=== PATIENT | male | born 1950 | race Caucasian/White ===

== ENCOUNTER 2019-11-24 20:53 | Emergency (ER) | payer BC, MEDICARE ==
[2019-11-24] MEDS ORDERED: Albuterol/Ipratropium 4 GM Inhalation Spray INH STA (21:36)
--- NOTE | 2019-11-24 21:39 | EDM.PDOC ---
ED HPI GENERAL MEDICAL PROBLEM - General Chief Complaint: Respiratory Problem Stated Complaint: SOB,FEVER Time Seen by Provider: 11/24/19 21:29 Source of Information: Reports: Patient, RN Notes Reviewed History Limitations: Reports: No Limitations - History of Present Illness INITIAL COMMENTS - FREE TEXT/NARRATIVE: Woman presents emergency department a complaint of shortness of breath, he states his been ill for about a week he thought he had virus fever only got up to 100 no cough no sputum production initially felt better a couple days ago then progressively got worse. The shortness of breath is worse with exertion feels fine at rest he denies any known exposure or any large gatherings no travel - Related Data Allergies Allergy/AdvReac Type Severity Reaction Status Date / Time Penicillins Allergy Mild Hives Verified 11/24/19 21:10 Sulfa (Sulfonamide Allergy Mild Hives Verified 11/24/19 21:10 Antibiotics) Home Meds: Home Meds Fluconazole [Diflucan] 200 mg PO DAILY 03/24/13 [History] Multivitamin with Minerals [Multiple Vitamin] 1 tab PO DAILY 03/24/13 [History] glipiZIDE [Glucotrol] 5 mg PO DAILY 11/24/19 [History] lisinopriL [Lisinopril] 20 mg PO DAILY 11/24/19 [History] metFORMIN HCl [Metformin HCl] 500 mg PO BID 11/24/19 [History] Past Medical History HEENT History: Reports: Impaired Vision Cardiovascular History: Reports: Hypertension Endocrine/Metabolic History: Reports: Diabetes, Type II - Infectious Disease History Infectious Disease History: Reports: Chicken Pox, Measles - Past Surgical History Head Surgeries/Procedures: Reports: None HEENT Surgical History: Reports: Adenoidectomy, Tonsillectomy Cardiovascular Surgical History: Reports: None GI Surgical History: Reports: Hernia, Inguinal Endocrine Surgical History: Reports: None Dermatological Surgical History: Reports: None Social & Family History - Tobacco Use Smoking Status *Q: Former Smoker Used Tobacco, but Quit: Yes Month/Year Tobacco Last Used: 1985 Second Hand Smoke Exposure: No - Caffeine Use Caffeine Use: Reports: Coffee - Recreational Drug Use Recreational Drug Use: No ED ROS GENERAL - Review of Systems Review Of Systems: See Below Constitutional: Reports: Fever, Chills HEENT: Reports: No Symptoms Respiratory: Reports: Shortness of Breath. Denies: Wheezing, Cough, Sputum Cardiovascular: Reports: Dyspnea on Exertion GI/Abdominal: Reports: No Symptoms : Reports: No Symptoms Musculoskeletal: Reports: No Symptoms Skin: Reports: No Symptoms ED EXAM, GENERAL - Physical Exam Exam: See Below Exam Limited By: No Limitations General Appearance: Alert, WD/WN, No Apparent Distress Neck: Normal Inspection, Supple, Non-Tender, Full Range of Motion Respiratory/Chest: No Respiratory Distress, Lungs Clear, Normal Breath Sounds, No Accessory Muscle Use, Chest Non-Tender Cardiovascular: Regular Rate, Rhythm, No Murmur GI/Abdominal: Soft, Non-Tender Extremities: No Pedal Edema Course - Vital Signs Last Recorded V/S: Last Vital Signs Temp 97.3 F 11/24/19 21:18 Pulse 88 11/24/19 22:56 Resp 16 11/24/19 22:56 BP 158/82 H 11/24/19 22:56 Pulse Ox 94 L 11/24/19 22:56 - Orders/Labs/Meds Orders: Active Orders 24 hr Category Date Time Status RT Post Treatment Assessment [RC] Click to Edit Care 11/24/19 21:37 Active Chest 2V [CR] Stat Exams 11/24/19 21:35 Taken CORONAVIRUS COVID-19, JANEE Stat Lab 11/24/19 21:50 Received Isolation [COMM] Routine Oth 11/24/19 21:35 Ordered Isolation [COMM] Stat Oth 11/24/19 21:34 Ordered Labs: Laboratory Tests 11/24/19 11/24/19 11/24/19 Range/Units 21:55 21:55 21:55 WBC 23.0 H (4.5-11.0) K/uL RBC 3.88 L (4.30-5.90) M/uL Hgb 11.3 L (12.0-15.0) g/dL Hct 33.0 L (40.0-54.0) % MCV 85 (80-98) fL MCH 29 (27-31) pg MCHC 34 (32-36) % Plt Count 450 H (150-400) K/uL Add Manual Diff Yes Neutrophils % (Manual) 82 H (36-66) % Lymphocytes % (Manual) 8 L (24-44) % Monocytes % (Manual) 7 H (2-6) % Eosinophils % (Manual) 2 (2-4) % Sodium (140-148) mmol/L Potassium (3.6-5.2) mmol/L Chloride (100-108) mmol/L Carbon Dioxide (21-32) mmol/L Anion Gap (5.0-14.0) mmol/L BUN (7-18) mg/dL Creatinine (0.8-1.3) mg/dL Est Cr Clr Drug Dosing mL/min Estimated GFR (MDRD) (>60) Glucose (74-106) mg/dL Lactic Acid 1.7 (0.4-2.0) mmol/L Calcium (8.5-10.1) mg/dL Total Bilirubin (0.2-1.0) mg/dL AST (15-37) U/L ALT (12-78) U/L Alkaline Phosphatase (46-116) U/L Lactate Dehydrogenase 275 H (85-227) U/L C-Reactive Protein 16.80 H (0.0-0.3) mg/dL Total Protein (6.4-8.2) g/dL Albumin (3.4-5.0) g/dL Globulin (2.3-3.5) g/dL Albumin/Globulin Ratio (1.2-2.2) Procalcitonin ng/mL 11/24/19 11/24/19 Range/Units 21:55 21:55 WBC (4.5-11.0) K/uL RBC (4.30-5.90) M/uL Hgb (12.0-15.0) g/dL Hct (40.0-54.0) % MCV (80-98) fL MCH (27-31) pg MCHC (32-36) % Plt Count (150-400) K/uL Add Manual Diff Neutrophils % (Manual) (36-66) % Lymphocytes % (Manual) (24-44) % Monocytes % (Manual) (2-6) % Eosinophils % (Manual) (2-4) % Sodium 125 L (140-148) mmol/L Potassium 3.9 (3.6-5.2) mmol/L Chloride 90 L (100-108) mmol/L Carbon Dioxide 26 (21-32) mmol/L Anion Gap 12.9 (5.0-14.0) mmol/L BUN 15 (7-18) mg/dL Creatinine 1.3 (0.8-1.3) mg/dL Est Cr Clr Drug Dosing 47.96 mL/min Estimated GFR (MDRD) 55 L (>60) Glucose 514 H* (74-106) mg/dL Lactic Acid (0.4-2.0) mmol/L Calcium 8.1 L (8.5-10.1) mg/dL Total Bilirubin 0.6 (0.2-1.0) mg/dL AST 74 H (15-37) U/L ALT 87 H (12-78) U/L Alkaline Phosphatase 91 (46-116) U/L Lactate Dehydrogenase (85-227) U/L C-Reactive Protein (0.0-0.3) mg/dL Total Protein 7.5 (6.4-8.2) g/dL Albumin 2.0 L (3.4-5.0) g/dL Globulin 5.5 H (2.3-3.5) g/dL Albumin/Globulin Ratio 0.4 L (1.2-2.2) Procalcitonin 0.23 ng/mL Meds: Medications Discontinued Medications Generic Name Dose Route Start Last Admin Trade Name Medhatq PRN Reason Stop Dose Admin Albuterol/Ipratropium 4 gm 11/24/19 21:36 11/24/19 22:13 Combivent Respimat INH 11/24/19 21:37 4 gm NOW STA Administration Ceftriaxone Sodium 1 gm/ 0 gm 11/24/19 22:56 Lidocaine HCl 2.1 ml IM 11/24/19 22:57 ONETIME ONE Departure - Departure Time of Disposition: 23:01 Disposition: Home, Self-Care 01 Condition: Fair Clinical Impression: CAP (community acquired pneumonia) Qualifiers: Laterality: unspecified laterality Qualified Code(s): J18.9 - Pneumonia, unspecified organism - Discharge Information Instructions: Community-Acquired Pneumonia, Adult, [id number] Referrals: Ran Sandhu MD [Primary Care Provider] - Forms: ED Department Discharge Additional Instructions: Take full course of antibiotics continue use of your albuterol inhaler for shortness of breath, please followup with your primary care provider in 3-5 days if not better, please call return to the emergency department with worsening of symptoms. Sepsis Event Note - Evaluation Sepsis Screening Result: No Definite Risk - Focused Exam Vital Signs: Vital Signs Temp Pulse Resp BP Pulse Ox 11/24/19 22:56 88 16 158/82 H 94 L 05/26/20 22:08 87 146/78 H 96 11/24/19 21:56 85 16 156/75 H 97 11/24/19 21:18 97.3 F 91 16 160/76 H 95 11/24/19 21:09 97.3 F 91 16 160/76 H 95 Date Exam was Performed: 11/24/19 Time Exam was Performed: 22:57 - My Orders Last 24 Hours: My Active Orders 11/24/19 21:34 Isolation [COMM] Stat 11/24/19 21:35 Chest 2V [CR] Stat Isolation [COMM] Routine 11/24/19 21:37 RT Post Treatment Assessment [RC] Click to Edit 11/24/19 21:50 CORONAVIRUS COVID-19, JANEE Stat - Assessment/Plan Last 24 Hours: My Active Orders 11/24/19 21:34 Isolation [COMM] Stat 11/24/19 21:35 Chest 2V [CR] Stat Isolation [COMM] Routine 11/24/19 21:37 RT Post Treatment Assessment [RC] Click to Edit 11/24/19 21:50 CORONAVIRUS COVID-19, JANEE Stat Plan: Assessment Acuity = acute Site and laterality = community-acquired pneumonia Etiology = probable bacterial cause Manifestations = dyspnea Location of injury = Home Lab values = WBC elevated at 23 consistent with leukocytosis 82% neutrophils hemoglobin low at 11.3 consistent with normochromic anemia sodium low at 125 consistent with hyponatremia corrected glucose is 131 elevated 514 consistent with hyperglycemia lactic acid normal 1.7 AST elevated 74 ALT elevated 87 LDH slightly elevated 274 CRP elevated 16.8 procalcitonin borderline 0.23 chest x- ray I did review films myself I cannot appreciate any acute process, the official read from radiology is pending Plan I did review lab work with him he would like to try this treatment as an outpatient therefore he was given 1 g Rocephin while in the emergency department started on azithromycin 5-day course follow-up primary care 3 to 5 days if not better we will contact him when the COVID test becomes available in 48 hours This note was dictated using [employer] recognition software please call with any questions on syntax or grammar.
[2019-11-24] MEDS ORDERED: cefTRIAXone 1 GM, Lidocaine 1% 2.1 ML IM ONE ×2 (22:56)
[2019-11-24 22:57] VITALS: BP 158/82; PULSE 88
--- NOTE | 2019-11-25 08:54 | CR ---
CHEST: 2 view CLINICAL HISTORY:SOB COMPARISON:None FINDINGS: The heart size, pulmonary vascularity and hilar structures are normal. No infiltrate effusion or pneumothorax is seen. IMPRESSION: No acute cardiopulmonary process.
== END 2019-11-24 23:15 | disposition home or self-care (01) ==
LOC: JP.ED 20:53
DX: J18.9 Pneumonia, unspecified organism (principal); I10 Essential (primary) hypertension; E11.9 Type 2 diabetes mellitus without complications; Z88.0 Allergy status to penicillin; Z88.2 Allergy status to sulfonamides; Z79.899 Other long term (current) drug therapy; Z79.84 Long term (current) use of oral hypoglycemic drugs; Z87.891 Personal history of nicotine dependence
CPT/HCPCS: 36415; 71046; 80053; 83605; 83615; 84145; 85025; 86140; 87804; 94640; 96372; 99285; A9270; J0696; J2001; U0002

== ENCOUNTER 2021-04-18 14:55 | Emergency (ER) | payer MEDICARE ==
[2021-04-18 16:21] VITALS: BP 144/67; PULSE 94
--- NOTE | 2021-04-18 16:35 | EDM.PDOC ---
ED HPI GENERAL MEDICAL PROBLEM - General Chief Complaint: General Stated Complaint: MEDICAL [facility] Time Seen by Provider: 04/18/21 15:30 Source of Information: Reports: Patient, EMS History Limitations: Reports: No Limitations - History of Present Illness INITIAL COMMENTS - FREE TEXT/NARRATIVE: 70-year-old male did not show up for work today so his boss called, the patient did not answer so a welfare check was done and they found him lying on the kitchen floor. He is not sure what happened, he feels fine now. He was stable in route. He does not remember anything from this morning. He is a diabetic, they found his blood sugar to be 265 in route to the hospital. He is not injured, has no pain, no fever chills nausea vomiting or shortness of breath. - Related Data Allergies Allergy/AdvReac Type Severity Reaction Status Date / Time Penicillins Allergy Intermediate Hives Verified 04/18/21 15:03 Sulfa (Sulfonamide Allergy Mild Hives Verified 04/18/21 15:03 Antibiotics) Home Meds: Home Meds Multivitamin with Minerals [Multiple Vitamin] 1 tab PO DAILY 03/24/13 [History] glipiZIDE [Glucotrol] 5 mg PO DAILY 11/24/19 [History] lisinopriL [Lisinopril] 20 mg PO DAILY 11/24/19 [History] metFORMIN HCl [Metformin HCl] 500 mg PO BID 11/24/19 [History] Hydrocortisone [Hydrocortisone 1% Crm] 28.4 gm TOP ASDIRECTED 04/18/21 [History] Ketoconazole [Ketoconazole 2%] 1 applic TOP BID 04/18/21 [History] Past Medical History HEENT History: Reports: Impaired Vision Cardiovascular History: Reports: Hypertension Gastrointestinal History: Reports: None Endocrine/Metabolic History: Reports: Diabetes, Type II - Infectious Disease History Infectious Disease History: Reports: Chicken Pox, Measles - Past Surgical History Head Surgeries/Procedures: Reports: None HEENT Surgical History: Reports: Adenoidectomy, Tonsillectomy Cardiovascular Surgical History: Reports: None GI Surgical History: Reports: Hernia, Inguinal Endocrine Surgical History: Reports: None Dermatological Surgical History: Reports: None Social & Family History - Tobacco Use Tobacco Use Status *Q: Never Tobacco User - Caffeine Use Caffeine Use: Reports: Coffee - Recreational Drug Use Recreational Drug Use: No ED ROS GENERAL - Review of Systems Review Of Systems: See Below Constitutional: Denies: Fever, Chills, Malaise HEENT: Denies: Vision Change Respiratory: Denies: Shortness of Breath Cardiovascular: Denies: Chest Pain GI/Abdominal: Denies: Nausea, Vomiting : Reports: No Symptoms Musculoskeletal: Reports: No Symptoms Skin: Reports: No Symptoms Neurological: Reports: Confusion. Denies: Dizziness, Headache Psychiatric: Reports: No Symptoms ED EXAM, GENERAL - Physical Exam Exam: See Below Exam Limited By: No Limitations General Appearance: Alert, No Apparent Distress Eye Exam: Bilateral Eye: Normal Inspection Head: Atraumatic Neck: Non-Tender Respiratory/Chest: Lungs Clear Cardiovascular: Regular Rate, Rhythm. No: Tachycardia GI/Abdominal: Soft, Non-Tender Extremities: No: Pedal Edema Neurological: Alert, Confused, Memory Loss Recent Events. No: Slow to Respond Psychiatric: Normal Affect, Normal Mood Skin Exam: Warm, Dry Course - Vital Signs Last Recorded V/S: Last Vital Signs Temp 98.7 F 04/18/21 15:08 Pulse 94 04/18/21 16:20 Resp 26 H 04/18/21 16:20 BP 144/67 H 04/18/21 16:20 Pulse Ox 95 04/18/21 16:20 - Orders/Labs/Meds Labs: Laboratory Tests 04/18/21 04/18/21 Range/Units 16:33 16:40 WBC 5.9 (4.5-11.0) K/uL RBC 3.99 L (4.30-5.90) M/uL Hgb 11.8 L (12.0-15.0) g/dL Hct 34.2 L (40.0-54.0) % MCV 86 (80-98) fL MCH 30 (27-31) pg MCHC 35 (32-36) % Plt Count 97 L (150-400) K/uL Neut % (Auto) 89.2 H (36-66) % Lymph % (Auto) 7.6 L (24-44) % Becker % (Auto) 2.7 (2-6) % Eos % (Auto) 0.2 L (2-4) % Baso % (Auto) 0.3 (0-1) % Sodium 127 L (140-148) mmol/L Potassium 4.2 (3.6-5.2) mmol/L Chloride 93 L (100-108) mmol/L Carbon Dioxide 24 (21-32) mmol/L Anion Gap 14.2 H (5.0-14.0) mmol/L BUN 24 H D (7-18) mg/dL Creatinine 1.3 (0.8-1.3) mg/dL Est Cr Clr Drug Dosing 47.31 mL/min Estimated GFR (MDRD) 55 L (>60) Glucose 301 H (74-106) mg/dL Calcium 7.9 L (8.5-10.1) mg/dL Total Bilirubin 0.5 (0.2-1.0) mg/dL AST 96 H (15-37) U/L ALT 72 (12-78) U/L Alkaline Phosphatase 64 (46-116) U/L Creatine Kinase 1676 H (39-308) U/L Total Protein 7.6 (6.4-8.2) g/dL Albumin 3.0 L (3.4-5.0) g/dL Globulin 4.6 H (2.3-3.5) g/dL Albumin/Globulin Ratio 0.7 L (1.2-2.2) Meds: Medications Discontinued Medications Generic Name Dose Route Start Last Admin Trade Name Freq PRN Reason Stop Dose Admin Sodium Chloride 1,000 mls @ 1,000 mls/hr 04/18/21 18:00 04/18/21 18:32 Normal Saline IV 1,000 mls/hr ASDIRECTED [facility] Administration - Re-Assessments/Exams Free Text/Narrative Re-Assessment/Exam: 04/18/21 17:24 CBC, CMP, CK and head CT were obtained. Patient remained stable and wanted to go home. 04/18/21 17:[address] was negative for acute findings, CBC was reassuring. CMP revealed a glucose of 300 and labs indicated moderate dehydration. CK was 1600. Patient was bolused with 1 L of normal saline and then allowed to go home, he felt well enough to go home and there were no beds available for any more inpatient observation. Departure - Departure Time of Disposition: 19:04 Disposition: Home, Self-Care 01 Clinical Impression: Dehydration Syncope Qualifiers: Syncope type: unspecified Qualified Code(s): R55 - Syncope and collapse - Discharge Information Instructions: Dehydration, Adult, [id number] Referrals: PCP,Unknown [Primary Care Provider] - Forms: ED Department Discharge Care Plan Goals: Continue any current medications, concentrate on staying hydrated and increase activity as tolerated. Return anytime if worsening or concerns. Sepsis Event Note (ED) - Evaluation Sepsis Screening Result: No Definite Risk
--- NOTE | 2021-04-18 17:22 | CRLCT ---
For Patients: As a result of the Century Cures Act, medical imaging exams and procedure reports are released immediately into your electronic medical record. You may view this report before your referring provider. If you have questions, please contact your health care provider. Indication: Syncope, right-sided weakness Technique: Volumetric multidetector CT images of the head were obtained without the administration of low osmolar intravenous contrast. Comparison: None available Findings: There is no intra-axial or extra-axial fluid collection. There is no mass effect or midline shift. There is age-related cortical atrophy with mild sulcal widening and ex vacuo dilatation of the lateral ventricles. There is encephalomalacia of the right frontal lobe, otherwise the brain parenchyma is preserved in attenuation and sibley-white differentiation. Additional wound encephalomalacia within the left vertex subcortical white matter is appreciated. The orbits and their contents are grossly within normal limits. The bony calvarium is grossly intact. The paranasal sinuses are clear. The mastoid air cells are well aerated. Impression: Age related and remote ischemic changes of the brain without evidence of acute intracranial abnormality. Please note that all CT scans at this facility use dose modulation, iterative reconstruction, and/or weight-based dosing when appropriate to reduce radiation dose to as low as reasonably achievable. Dictated by Massimo Dempsey MD @ 04/18/2021 5:21:55 PM (Electronically Signed)
[2021-04-18] MEDS ORDERED: Sodium Chloride 0.9% 1,000 ML IV SCH (18:00)
== END 2021-04-18 19:05 | disposition home or self-care (01) ==
LOC: JP.ED 14:55
DX: E86.0 Dehydration (principal); R55 Syncope and collapse; I10 Essential (primary) hypertension; E11.9 Type 2 diabetes mellitus without complications; Z88.0 Allergy status to penicillin; Z88.2 Allergy status to sulfonamides; Z79.84 Long term (current) use of oral hypoglycemic drugs; Z79.899 Other long term (current) drug therapy
CPT/HCPCS: 36415; 70450; 80053; 82550; 85025; 99284; J7030

== ENCOUNTER 2021-11-16 10:36 | Day surgery (SDC) | payer MEDICARE ==
[~2021-11-16 10:36] MED LIST: Midazolam 1 MG/ML 2 ML SDV ONE; Propofol 200 MG/20 ML SDV ONE; fentaNYL 100 MCG/2 ML SDV ONE
[2021-11-16] MEDS ORDERED: Dextrose 5%-Lactated Ringers 1,000 ML IV SCH (11:15)
[2021-11-16 13:41] VITALS: PULSE 76
[2021-11-16 14:03] VITALS: BP 114/73
== END 2021-11-16 14:15 | disposition home or self-care (01) ==
LOC: JP.SDS 10:36
PROVIDERS: ATTEND Surgery
DX: R19.00 Intra-abdominal and pelvic swelling, mass and lump, unspecified site (principal); E11.9 Type 2 diabetes mellitus without complications; I10 Essential (primary) hypertension; Z88.2 Allergy status to sulfonamides; Z88.0 Allergy status to penicillin; Z01.812 Encounter for preprocedural laboratory examination; Z20.822 Contact with and (suspected) exposure to COVID-19
CPT/HCPCS: 43239; 88305; J2250; J2704; J3010; J7121; U0002

== ENCOUNTER 2021-12-11 07:47 | Day surgery (SDC) | payer MEDICARE ==
[2021-12-11] MEDS ORDERED: Linezolid 600 MG in Premix Bag 1 BAG IV ONE (08:00)
[2021-12-11] MEDS ORDERED: Dextrose 5%-Lactated Ringers 1,000 ML IV SCH (08:00)
[2021-12-11] MEDS ORDERED: Acetaminophen 500 MG Tab PO ONE (08:00)
[2021-12-11] MEDS ORDERED: Lidocaine 1% with EPINEPHrine 1:100,000 50 ML MDV ONE (08:41)
[2021-12-11] MEDS ORDERED: Bupivacaine 0.5% 50 ML MDV ONE (08:41)
[2021-12-11] MEDS ORDERED: Midazolam 1 MG/ML 2 ML SDV ONE (08:46)
[2021-12-11] MEDS ORDERED: fentaNYL 100 MCG/2 ML SDV ONE (08:46)
[2021-12-11] MEDS ORDERED: Propofol 200 MG/20 ML SDV ONE (08:46)
[2021-12-11 11:20] VITALS: BP 120/68; PULSE 83
== END 2021-12-11 11:27 | disposition home or self-care (01) ==
LOC: JP.SDS 07:47
PROVIDERS: ATTEND Surgery
DX: C25.9 Malignant neoplasm of pancreas, unspecified (principal); Z88.0 Allergy status to penicillin; Z88.2 Allergy status to sulfonamides
CPT/HCPCS: 36561; A9270; C1788; J1642; J2020; J2250; J2704; J3010; J3490; J7121

== ENCOUNTER 2022-08-13 10:44 | Emergency (ER) | payer MEDICARE ==
[2022-08-13 11:27] VITALS: BP 110/59; PULSE 80
[2022-08-13] MEDS ORDERED: oxyCODONE 5 MG Tab PO ONE (11:59)
== END 2022-08-13 12:49 | disposition home or self-care (01) ==
LOC: JP.ED 10:44
DX: R07.89 Other chest pain (principal); C22.9 Malignant neoplasm of liver, not specified as primary or secondary; R29.898 Other symptoms and signs involving the musculoskeletal system; I10 Essential (primary) hypertension; E11.9 Type 2 diabetes mellitus without complications; Z87.891 Personal history of nicotine dependence; Z88.0 Allergy status to penicillin; Z88.2 Allergy status to sulfonamides; Z79.4 Long term (current) use of insulin; Z79.899 Other long term (current) drug therapy; Z79.01 Long term (current) use of anticoagulants
CPT/HCPCS: 99284; A9270